=== PATIENT | female | born 2000 | race African-American/Black ===

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

== ENCOUNTER 2020-04-17 15:08 | Emergency (ER) | payer OTHER ==
[~2020-04-17] VITALS: Ht 160 cm; Wt 82.0 kg
[~2020-04-17 15:08] MED LIST changes: +CEPH-264 PO
[2020-04-17 15:40] VITALS: BP 118/85
--- NOTE | 2020-04-17 15:53 | PHYS DOC ---
Past Medical History Past Medical History: Asthma Past Surgical History: Tonsillectomy Smoking Status: Never Smoker Alcohol Use: None Drug Use: None General Adult EDM: Chief Complaint: SEXUALLY TRANSMITTED DISEASE HPI: HPI: Patient is a 19 year old female presents to emergency department with complaints of vaginal irritation since having unprotected sex a few days ago, patient states she just finished her period today, noting that her period only lasted 3 days when it usually lasts about 5 or 6. Patient also complains of nausea for the past day, patient states she is worried about STI, reports a clear vaginal discharge with itching only, no odor. Patient denies any urinary pressure or urinary pain or seeing blood in her urine. Patient denies constipation, abdominal pain, vomiting, or diarrhea. Patient denies any recent fever chills, cough congestion chest pain, or shortness of breath. Patient denies swelling of her extremities, denies skin rashes. Patient denies pelvic pains. Patient denies any other illnesses or physical complaints. Patient states no one else living in her home is having the same symptoms that she. Review of Systems: Review of Systems: 14 body systems of review of systems have been reviewed. See HPI for pertinent positives and negative responses, otherwise all other systems are negative, nonpertinent or noncontributory. Heart Score: Risk Factors: Risk Factors: DM, Current or recent (<one month) smoker, HTN, HLP, family history of CAD, obesity. Risk Scores: Score 0 - 3: 2.5% MACE over next 6 weeks - Discharge Home Score 4 - 6: 20.3% MACE over next 6 weeks - Admit for Clinical Observation Score 7 - 10: 72.7% MACE over next 6 weeks - Early Invasive Strategies Current Medications: Patient denies taking home prescription medications. Allergies: Allergies: Allergies Coded Allergies Type Severity Reaction Last Updated Verified No Known Drug Allergies 07/13/14 No Physical Exam: PE: Constitutional: Well developed, well nourished, no acute distress, non-toxic appearance. [] HENT: Normocephalic, atraumatic, bilateral external ears normal, oropharynx moist, no oral exudates, nose normal. [] Eyes: PERRLA, EOMI, conjunctiva normal, no discharge. [] Neck: Normal range of motion, no tenderness, supple, no stridor. [] Cardiovascular:Heart rate regular rhythm, no murmur [] Lungs & Thorax: Bilateral breath sounds clear to auscultation [] Abdomen: Bowel sounds normal, soft, no tenderness, no masses, no pulsatile masses. [] Skin: Warm, dry, no erythema, no rash. [] Back: No tenderness, no CVA tenderness. [] Extremities: No tenderness, no cyanosis, no clubbing, ROM intact, no edema. [] Neurologic: Alert and oriented X 3, normal motor function, normal sensory function, no focal deficits noted. [] Psychologic: Affect normal, judgement normal, mood normal. [] Current Patient Data: Vital Signs: Vital Signs Date Time Temp Pulse Resp B/P (MAP) Pulse Ox O2 Delivery O2 Flow Rate FiO2 04/17/20 15:39 97.9 80 18 118/85 (96) 100 Room Air 97.9 EKG: EKG: [] Radiology/Procedures: Radiology/Procedures: [] Course & Med Decision Making: Course & Med Decision Making Pertinent Labs and Imaging studies reviewed. (See chart for details) 19-year-old female with complaints of unprotected sex, new onset of vaginal irritation with clear discharge. My plan will be to check urine for infection, , perform a pelvic exam and send STI cultures and treat as indicated. Upon reexamination of the patient patient no longer has nausea sensation, patient states she feels much better now, her urine was not infected, she is not , wet prep showed incidence of bacterial vaginosis, there was no yeast or hyphae seen, per lab report, discussed with patient will start on metronidazole 500 mg twice daily x1 week patient did state that she often gets yeast infections when she is on antibiotics, will also prescribe 1 150 mg Diflucan that she will take when antibiotic regimen is complete, discussed with patient GC and chlamydia cultures pending, she will be contacted if positive and have prescriptions called to her at that time. Patient gave verbal understanding of discharge home instructions, antibiotic use, return to emergency room precautions and concerns, safe sex practice seen, patient had no further questions or concerns, patient discharged home without incident Diagnosis bacterial vaginosis, low likelihood of gonorrhea chlamydia per pelvic exam. Cultures pending at this time. Osiel Disclaimer: Osiel Disclaimer: This electronic medical record was generated, in whole or in part, using a voice recognition dictation system. Departure Departure Impression: Primary Impression: Bacterial vaginosis Disposition: 01 DC HOME SELF CARE/HOMELESS Condition: IMPROVED Referrals: NO PCP (PCP) Patient Instructions: Bacterial Vaginosis Additional Instructions: Please take prescribed medications as directed, you have been given an additional prescription for Diflucan that you can take at the end of your an tibiotic regimen in 1 week, please return to emergency department for worsening symptoms or other concerns, your GC and Chlamydia cultures are still pending and should result within the next 3 days, if either one is positive you will be contacted at the number you left with merchandise adjustment clerk, and appropriate medications will be prescribed to you at that time. EMERGENCY DEPARTMENT GENERAL DISCHARGE INSTRUCTIONS Thank you for coming to [facility] Emergency Department (ED) today and trusting us with you care. We trust that you had a positive experience in our Emergency Department. If you wish to speak to the department management, you may call the Director at [phone]. YOUR FOLLOW UP INSTRUCTIONS ARE FOLLOWS: 1. Do you have a private Doctor? If you do not have a private doctor, please ask for a resource list of physicians or clinics that may be able to assist you with follow up care. 2. The Emergency Physicain has interpreted your x-rays. The X-Ray specialist will also review them. If there is a change in the findings, you will be notified in 48 hours when at all possible. 3. A lab test or culture has been done, your results will be reviewed and you will be notified if you need a change in treatment. ADDITIONAL INSTRUCTIONS AND INFORMATION: 1. Your care today has been supervised by a physician who is specially trained in emergency care. Many problems require more than one evaluation for a complete diagnosis and treatment. We recommend that you schedule your follow up appointment as recommended to ensure complete treatment of you illness or injury. If you are unable to obtain follow up care and continue to have a problem, or if your condition worsens, we recommend that you return to the ED. 2. We are not able to safely determine your condition over the phone nor are we able to give sound medical advice over the phone. For these safety reasons, if you call for medical advice we will ask you to come to the ED for further evaluation. 3. If you have any questions regarding these discharge instructions please call the ED at [phone]. SAFETY INFORMATION: In the interest of safety, wellness, and injury prevention; we encourage you to wear your sealbelt, if you smoke; quite smoking, and we encourage family to use a protective helmet for bicycling and other sporting events that present an increased risk for head injury. IF YOUR SYMPTOMS WORSEN OR NEW SYMPTOMS DEVELOP, OR YOU HAVE CONCERNS ABOUT YOUR CONDITION; OR IF YOUR CONDITION WORSENS WHILE YOU ARE WAITING FOR YOUR FOLLOW UP APPOINTMENT; EITHER CONTACT YOUR PRIMARY CARE DOCTOR, THE PHYSICIAN WHOSE NAME AND NUMBER YOU WERE GIVEN, OR RETURN TO THE ED IMMEDIATELY. Scripts Fluconazole (DIFLUCAN) 150 Mg Tablet 1 TAB PO ONCE for INFECTION, #1 TAB 1 Refill Prov: JAIME HENDERSON APRN 04/17/20 Metronidazole (METRONIDAZOLE) 500 Mg Tablet 1 TAB PO BID for BACTERIAL INFECTION for 7 Days, #14 TAB 0 Refills Prov: JAIME HENDERSON APRN 04/17/20 JAIME HENDERSON APRN Apr 17, 2020 15:53
[2020-04-17] MEDS ORDERED: ONDANSETRON ODT 4 MG TAB.RAPDIS. PO ONE (16:15)
[2020-04-17 16:28] LABS: BILIRUBIN,URINE NEGATIVE (NEG); CLARITY,URINE CLEAR; COLOR,URINE YELLOW; NITRITE,URINE NEGATIVE (NEG); PH,URINE 6.5 (<5.0-8.0); PROTEIN,URINE NEGATIVE (NEG-TRACE); UROBILINOGEN,URINE 0.2 mg/dL (0.2 mg/dL)
[2020-04-17 16:56] LABS: BACTERIA,URINE 0 /HPF (0-FEW); RBC,URINE 0 /HPF (0-2); WBC,URINE 0 /HPF (0-4)
[2020-04-17] MEDS ORDERED: METR-34 PO (18:41)
[2020-04-17] MEDS ORDERED: FLUC150T PO (18:43)
[2020-04-18 19:11] LABS: GC PROBE Negative (Negative)
== END 2020-04-17 18:50 | disposition home or self-care (01) ==
LOC: ER 15:08
DX: N76.0 Acute vaginitis (principal); B96.89 Other specified bacterial agents as the cause of diseases classified elsewhere; J45.909 Unspecified asthma, uncomplicated
CPT/HCPCS: 81001; 81025; 87491; 87591; 99283; Q0111